=== PATIENT | male | born 1950 | race Caucasian/White ===

== ENCOUNTER 2022-12-19 00:33 | Day surgery (SDC) | payer OTHER, SELFPAY ==
[2022-12-05 14:12] VITALS: BMI 26.7
[2022-12-19 06:39] VITALS: BP 159/85; PULSE 114; RESP 20; TEMP 36.1; O2SAT 98; BMI 27.6
[2022-12-19 06:52] LABS: Glucose Point of Care 117 mg/dl (65-105)
[2022-12-19] MEDS: LACTATED RINGERS 1,000 ML 150 ML IV CONT (06:52)
--- NOTE | 2022-12-19 07:29 | WPDANESEPPF ---
Anes - Initial Pre Proc Eval Procedure: Operation Date: 12/19/22 07:30 Proposed Procedures p Colonoscopy - Sreekanth Bolton MD Date/Time: 12/19/22 07:29 Surgeon: Sreekanth Bolton MD Pre Op Diagnosis: positive cologuard Patient Data Age: 72 Gender: M Height: 1.7 m Weight: 79.9 kg Last Vital Signs Temp 97.0 F L 12/19/22 06:39 Pulse 114 H 12/19/22 06:39 Resp 20 12/19/22 06:39 BP 159/85 H 12/19/22 06:39 Pulse Ox 98 12/19/22 06:39 O2 Del Method Room Air 12/19/22 06:39 Allergies Allergy/AdvReac Type Severity Reaction Status Date / Time ibuprofen AdvReac Intermediate Gastrointestinal Verified 12/19/22 06:37 Upset Home Medications Medication Instructions Recorded Confirmed Type sildenafil 100 mg tablet 100 mg PO DAILY PRN sexual 05/06/22 12/19/22 Rx activity #10 tabs fluticasone 500 mcg-salmeterol 50 See Rx Instructions .Route 05/20/22 12/19/22 Rx mcg/dose blistr powdr for .COMPLEX #180 ea inhalation ([employer] Inhub) amlodipine 10 mg tablet See Rx Instructions .Route 07/10/22 12/19/22 Rx .COMPLEX #90 tabs omeprazole 40 mg capsule,delayed See Rx Instructions .Route 07/10/22 12/19/22 Rx release .COMPLEX #90 caps cetirizine 10 mg tablet 10 mg PO DAILY PRN Allergy Symptoms 09/05/22 12/19/22 History diclofenac sodium 75 mg See Rx Instructions .Route 09/13/22 12/19/22 Rx tablet,delayed release .COMPLEX #180 tabs fenofibrate 160 mg tablet 160 mg PO DAILY #90 tabs 09/13/22 12/19/22 Rx clonidine HCl 0.1 mg tablet See Rx Instructions .Route 09/22/22 12/19/22 Rx .COMPLEX #180 tabs metoprolol succinate 100 mg See Rx Instructions .Route 09/22/22 12/19/22 Rx tablet,extended release 24 hr .COMPLEX #180 tabs sodium,potassium,mag sulfates 17.5 See Rx Instructions PO .COMPLEX 11/06/22 12/19/22 Rx gram-3.13 gram-1.6 gram oral soln #354 mL (Suprep Bowel Prep Kit) aspirin 81 mg tablet 81 mg PO DAILY 12/05/22 12/19/22 History valsartan 320 See Rx Instructions .Route 12/15/22 12/19/22 Rx mg-hydrochlorothiazide 25 mg tablet .COMPLEX #90 tabs albuterol sulfate 90 mcg/actuation 2 inh inhalation Q4H PRN Shortness 12/16/22 12/19/22 Rx aerosol inhaler Of Breath #8.5 grams atorvastatin 40 mg tablet 40 mg PO DAILY #90 tabs 12/16/22 12/19/22 Rx gabapentin 300 mg capsule 300 mg PO BID #180 caps 12/16/22 12/19/22 Rx metformin 500 mg tablet,extended 2,000 mg PO DAILY #360 tabs 12/16/22 12/19/22 Rx release 24 hr Laboratory Tests 12/19/22 06:46 POC Capillary Glucose 117 mg/dl H mg/dl (65-105) Patient hx anesthesia problems: none Family hx anesthesia problems: none Results Review: All pre-operative results and documents have been reviewed as part of the pre-operative evaluation. [facility] Past Medical History Medical History History of empyema of pleura 2017, right with thoracotomy History of nicotine dependence Surgical History Surgical History History of abdominal aortic aneurysm (AAA) repair (2011) History of cataract surgery Bilateral 2012 & 2018 History of tonsillectomy Family History Family History Father Family history of cardiovascular disease Other Family history of malignant neoplasm Social History Social History Years smoked: 45 Smoking status: Former smoker Tobacco type: cigarettes Second hand tobacco smoke exposure: No Smoking end date: 12/01/11 Alcohol intake: current Drinks per week: 2 Substance use: never Substance use type: does not use Living arrangements: alone Gender identity (if verbalized by the patient): Male Sexual Orientation (if Verbalized by the Patient): Straight or Heterosexual Spiritual care concerns: No Agree to blood products: Yes Anes - Eval Final PreProcedure
[2022-12-19 07:57] VITALS: BP 131/83; PULSE 98; RESP 26; O2SAT 92
--- NOTE | 2022-12-19 07:57 | PM.HPGS ---
History of Present Illness History of Present Illness Consent: Risks, benefits, and alternatives have been discussed and questions answered. Patient agrees to proceed with procedure. Chief complaint: positive cologuard Narrative: Charles Alvarez is a 72 year old male presents for screening colonoscopy. Patient's current weight appetite and bowel movements are normal. Patient denies abdominal pain. He has had no bleeding. Patient had positive screening Cologuard test and for this reason colonoscopy is requested. Review of Systems Review of Systems: Review of systems noncontributory. [facility] Past Medical History Medical History History of empyema of pleura 2017, right with thoracotomy History of nicotine dependence Surgical History Surgical History History of abdominal aortic aneurysm (AAA) repair (2011) History of cataract surgery Bilateral 2011 & 2018 History of tonsillectomy Family History Family History Father Family history of cardiovascular disease Other Family history of malignant neoplasm Social History Social History Years smoked: 45 Smoking status: Former smoker Tobacco type: cigarettes Second hand tobacco smoke exposure: No Smoking end date: 12/01/11 Alcohol intake: current Drinks per week: 2 Substance use: never Substance use type: does not use Living arrangements: alone Gender identity (if verbalized by the patient): Male Sexual Orientation (if Verbalized by the Patient): Straight or Heterosexual Spiritual care concerns: No Agree to blood products: Yes Meds Home Medications and Allergies Home Medications Medication Instructions Recorded Confirmed Type sildenafil 100 mg tablet 100 mg PO DAILY PRN sexual 05/06/22 12/19/22 Rx activity #10 tabs fluticasone 500 mcg-salmeterol 50 See Rx Instructions .Route 05/20/22 12/19/22 Rx mcg/dose blistr powdr for .COMPLEX #180 ea inhalation ([employer] Inhub) amlodipine 10 mg tablet See Rx Instructions .Route 07/10/22 12/19/22 Rx .COMPLEX #90 tabs omeprazole 40 mg capsule,delayed See Rx Instructions .Route 07/10/22 12/19/22 Rx release .COMPLEX #90 caps cetirizine 10 mg tablet 10 mg PO DAILY PRN Allergy Symptoms 09/05/22 12/19/22 History diclofenac sodium 75 mg See Rx Instructions .Route 09/13/22 12/19/22 Rx tablet,delayed release .COMPLEX #180 tabs fenofibrate 160 mg tablet 160 mg PO DAILY #90 tabs 09/13/22 12/19/22 Rx clonidine HCl 0.1 mg tablet See Rx Instructions .Route 09/22/22 12/19/22 Rx .COMPLEX #180 tabs metoprolol succinate 100 mg See Rx Instructions .Route 09/22/22 12/19/22 Rx tablet,extended release 24 hr .COMPLEX #180 tabs sodium,potassium,mag sulfates 17.5 See Rx Instructions PO .COMPLEX 11/06/22 12/19/22 Rx gram-3.13 gram-1.6 gram oral soln #354 mL (Suprep Bowel Prep Kit) aspirin 81 mg tablet 81 mg PO DAILY 12/05/22 12/19/22 History valsartan 320 See Rx Instructions .Route 12/15/22 12/19/22 Rx mg-hydrochlorothiazide 25 mg tablet .COMPLEX #90 tabs albuterol sulfate 90 mcg/actuation 2 inh inhalation Q4H PRN Shortness 12/16/22 12/19/22 Rx aerosol inhaler Of Breath #8.5 grams atorvastatin 40 mg tablet 40 mg PO DAILY #90 tabs 12/16/22 12/19/22 Rx gabapentin 300 mg capsule 300 mg PO BID #180 caps 12/16/22 12/19/22 Rx metformin 500 mg tablet,extended 2,000 mg PO DAILY #360 tabs 12/16/22 12/19/22 Rx release 24 hr Allergies Allergy/AdvReac Type Severity Reaction Status Date / Time ibuprofen AdvReac Intermediate Gastrointestinal Verified 12/19/22 06:37 Upset Vital Signs Vital Signs - 24 hr 12/19/22 06:39 Temperature 97.0 F L Pulse Rate 114 H Respiratory Rate 20 Blood Pressure 159/85 H Pulse Oximetry 98 Oxygen Delivery Room Air Exam N
--- NOTE | 2022-12-19 07:58 | ECG_ITS ---
Measurements Intervals [place] Rate: 113 P: SC: 0 QRS: 13 QRSD: 90 T: 9 QT: 325 QTc: 446 Interpretive Statements ATRIAL FIBRILLATION WITH RAPID VENTRICULAR RESPONSE INCOMPLETE RIGHT BUNDLE BRANCH BLOCK BORDERLINE R WAVE PROGRESSION, ANTERIOR LEADS BORDERLINE ST-T WAVE ABNORMALITY- ANT/INF LEADS BASELINE ARTIFACT- I, II, AVR ABNORMAL ECG NO PREVIOUS ECG AVAILABLE FOR COMPARISON Electronically Signed On 12-19-2022 9:26:48 INFECTIOUS WASTE TECHNICIAN by Rolf Magdaleno D.O.
[2022-12-19 08:07] VITALS: BP 136/70; PULSE 95; RESP 25; O2SAT 98
[2022-12-19 08:17] VITALS: BP 136/98; PULSE 111; RESP 20; O2SAT 98
== END 2022-12-19 08:37 | disposition home or self-care (01) ==
PROVIDERS: PCP Family Medicine Adolescent Medicine; Visit Provider Internal Medicine Gastroenterology
PROC: 0DJD8ZZ Inspection of Lower Intestinal Tract, Via Natural or Artificial Opening Endoscopic (ICD-10-PCS; CPT 45378; principal; 2022-12-19 07:30)
DX: R19.5 Other fecal abnormalities (principal); K64.8 Other hemorrhoids; K57.30 Diverticulosis of large intestine without perforation or abscess without bleeding; Z79.82 Long term (current) use of aspirin; Z79.51 Long term (current) use of inhaled steroids; Z79.84 Long term (current) use of oral hypoglycemic drugs; Z87.891 Personal history of nicotine dependence
CPT/HCPCS: 45378; 82948; 93005; J2704; J7120

== ENCOUNTER 2023-08-07 15:34 | Outpatient (CLI) | payer OTHER, SELFPAY ==
--- NOTE | ~2023-08-07 | XR_ITS ---
EXAMINATION: XR chest 2V DATE: 08/07/2023 15:50 INDICATION: Chronic obstructive pulmonary disease. TECHNIQUE: Frontal and lateral views of the chest were obtained. COMPARISON: Chest 2 views 04/30/17, chest CT 02/18/17 FINDINGS: There are small pleural effusions. There are airspace opacities in the mid and lower lung z ones. No pneumothorax. There is enlargement of the cardiac silhouette. There is embolization material in the abdomen. There is a stent graft in abdominal aorta. There is a defect in right posterior tatyana nth rib, likely from thoracotomy. IMPRESSION: 1. Airspace opacities in the mid and lower lung zones, consistent with pulmonary edema versus pneumon ia. 2. Small pleural effusions. 3. Enlargement of the cardiac silhouette suspicious for cardiomegaly and/or pericardial effusion. Reviewed, dictated and finalized at location E. IMPRESSION: 1. Airspace opacities in the mid and lower lung zones, consistent with pulmonar y edema versus pneumonia. 2. Small pleural effusions. 3. Enlargement of the cardiac silhouette suspicious for cardiomegaly and/or per icardial effusion.
[2023-08-07 16:17] LABS: Basophils Absolute Auto 0.1 K/mm3 (0.0-0.1); Basophils Percent Auto 0.7 % (0.2-1.2); Eosinophils Percent Auto 0.3 % (0-4.4); Hematocrit 34.5 % (42.0-52.0); Hemoglobin 11.1 g/dL (14.0-18.0); Immature Granulocyte Absolute 0.15 K/mm3 (0.00-0.031); Immature Granulocyte Percent A 1.3 % (0-0.5); Lymphocytes Absolute Auto 1.01 K/mm3 (0.9-3.2); Lymphocytes Percent Auto 8.7 % (18.3-44.2); Mean Corpuscular HGB Conc 32.2 g/dl (32-36); Mean Corpuscular Hemoglobin 26.6 pg (26-34); Mean Corpuscular Volume 82.5 fl (80-100); Mean Platelet Volume 9.3 fl (7.4-10.4); Monocytes Absolute Auto 0.9 K/mm3 (0.1-0.6); Neutrophils Absolute Auto 9.4 K/mm3 (1.3-6.7); Platelet Count Result 207 k/mm3 (150-375); Red Blood Count 4.18 M/mm3 (4.6-6.20); Red Cell Distribution Width 15.9 % (11.5-14.5); White Blood Count 11.6 K/mm3 (4.5-10.0)
[2023-08-07 16:28] LABS: INR 2.7; Prothrombin Time 31.2 Seconds (11.1-14.7)
[2023-08-07 16:31] LABS: Alanine Aminotransferase 15 U/L (6-50); Albumin Level 4.6 g/dL (3.5-5.1); Alkaline Phosphatase 45 U/L (38-126); Anion Gap 15 mmol/L (8-16); Aspartate Amino Transferase 22 U/L (17-59); Bilirubin,Total 1.9 mg/dL (0.2-1.3); Blood Urea Nitrogen 16 mg/dL (9-20); Calcium 9.1 mg/dL (8.4-10.2); Carbon Dioxide 19 mmol/L (22-30); Chloride 93 mmol/L (98-107); Estimated Glomerular Filt Rate 54; Glucose 121 mg/dL (65-110); Potassium 4.3 mmol/L (3.4-5.0); Sodium 127 mmol/L (137-145)
[2023-08-07 18:16] LABS: Hemoglobin A1C 5.5 % (<5.7)
== END 2023-08-07 15:35 | disposition home or self-care (01) ==
LOC: ANHIMG 15:39
PROVIDERS: PCP Family Medicine Adolescent Medicine; Visit Provider Nurse Practitioner Family
DX: E11.22 Type 2 diabetes mellitus with diabetic chronic kidney disease (principal); E78.2 Mixed hyperlipidemia; Z79.01 Long term (current) use of anticoagulants; I48.0 Paroxysmal atrial fibrillation; J44.1 Chronic obstructive pulmonary disease with (acute) exacerbation; J90 Pleural effusion, not elsewhere classified; R91.8 Other nonspecific abnormal finding of lung field
CPT/HCPCS: 36415; 71046; 80053; 83036; 85025; 85610